=== PATIENT | male | born 1975 | race Caucasian/White ===

== ENCOUNTER 2023-03-17 10:32 | Observation (INO) ==
[2023-03-17] MEDS ORDERED: ZOFRAN INJ 4 MG VIAL IVP PRN (10:39)
[2023-03-17] MEDS: D5 1/2 NS 1,000 ML 1,000 ML IV SCH (14:48)
[2023-03-17] MEDS: DILAUDID INJ IVP PRN ×2 (14:56→20:20)
[2023-03-17] MEDS: ZOFRAN INJ 4 MG VIAL IVP PRN ×2 (14:57→20:16)
[2023-03-17 15:14] VITALS: BMI 32.9
[2023-03-17] MEDS ORDERED: NS 100 ML IV 100 ML ONE (16:52)
[2023-03-17] MEDS ORDERED: OMNIPAQUE 350 mg/mL 100 mL BTL 100 ML ONE (16:52)
[2023-03-17] MEDS ORDERED: READI-CAT 2 ONE (16:53)
[2023-03-17 16:55] LABS: BASOPHILS % (AUTO) 0.2 % (0.2-1.0); EOSINOPHILS % (AUTO) 0.4 % (0.9-2.9); HEMATOCRIT 37.7 % (42.0-54.0); HEMOGLOBIN 12.8 g/dL (13.5-18.0); LYMPHOCYTES # (AUTO) 1.3 X10^3/uL (1.3-2.9); LYMPHOCYTES % (AUTO) 11.1 % (21.0-51.0); MEAN CORPUSCULAR HEMOGLOBIN 30.2 pg (27.0-34.0); MEAN PLATELET VOLUME 7.7 fL (7.4-11.0); MONOCYTES # (AUTO) 0.8 x10^3/uL (0.3-0.8); MONOCYTES % (AUTO) 7.3 % (0.0-13.0); NEUTROPHILS # (AUTO) 9.4 x10^3/uL (2.2-4.8); PLATELET COUNT 165 X10^3/uL (150.0-450.0); RED BLOOD COUNT 4.24 X10^6/uL (4.7-6.0); RED CELL DISTRIBUTION WIDTH 13.1 % (11.6-16.5); WHITE BLOOD COUNT 11.6 X10^3/uL (3.6-10.0)
[2023-03-17 17:10] LABS: ALANINE AMINOTRANSFERASE 72 Units/L (12-78); ALBUMIN 3.1 g/dL (3.4-5.0); ALKALINE PHOSPHATASE 107 Units/L (46-116); ASPARTATE AMINO TRANSFERASE 16 Units/L (15-37); BLOOD UREA NITROGEN 8 mg/dL (7-18); CALCIUM 8.1 mg/dL (8.5-10.1); CARBON DIOXIDE 30.5 mmol/L (21-32); CHLORIDE 103 mmol/L (98-107); COR CA(FOR HYPOALB) 8.8 mg/dL (8.5-10.1); CREATININE 1.04 mg/dL (0.70-1.30); GLUCOSE 93 mg/dL (65-99); POTASSIUM 3.6 mmol/L (3.5-5.1); SODIUM 138 mmol/L (136-145); TOTAL PROTEIN 6.6 g/dL (6.4-8.2); eGFR NON BLACK RACES > 60 (>60)
[2023-03-17] MEDS ORDERED: ATIVAN TAB 1 MG PO PRN (17:11)
[2023-03-17] MEDS: PERCOCET TAB 5/325 MG PO PRN ×2 (18:23→22:45)
[2023-03-18] MEDS: DILAUDID INJ IVP PRN ×5 (00:20→20:20)
[2023-03-18] MEDS: D5 1/2 NS 1,000 ML 1,000 ML IV SCH ×7 (00:28→22:21)
[2023-03-18] MEDS: ZOFRAN INJ 4 MG VIAL IVP PRN (02:16)
[2023-03-18] MEDS: PERCOCET TAB 5/325 MG PO PRN ×2 (03:04→07:58)
[2023-03-18 06:21] LABS: BASOPHILS % (AUTO) 0.3 % (0.2-1.0); EOSINOPHILS # (AUTO) 0.1 x10^3/uL (0.0-0.2); EOSINOPHILS % (AUTO) 0.6 % (0.9-2.9); HEMATOCRIT 38.5 % (42.0-54.0); HEMOGLOBIN 12.9 g/dL (13.5-18.0); LYMPHOCYTES # (AUTO) 1.2 X10^3/uL (1.3-2.9); LYMPHOCYTES % (AUTO) 9.4 % (21.0-51.0); MEAN CORPUSCULAR HGB CONC 33.6 g/dL (33.0-35.0); MEAN CORPUSCULAR VOLUME 89.3 fL (80.0-100.0); MEAN PLATELET VOLUME 8.3 fL (7.4-11.0); MONOCYTES # (AUTO) 1.4 x10^3/uL (0.3-0.8); MONOCYTES % (AUTO) 10.4 % (0.0-13.0); NEUTROPHILS # (AUTO) 10.5 x10^3/uL (2.2-4.8); NEUTROPHILS % (AUTO) 79.3 % (42.0-75.0); PLATELET COUNT 170 X10^3/uL (150.0-450.0); RED BLOOD COUNT 4.31 X10^6/uL (4.7-6.0); RED CELL DISTRIBUTION WIDTH 13.1 % (11.6-16.5); WHITE BLOOD COUNT 13.2 X10^3/uL (3.6-10.0)
[2023-03-18 06:33] LABS: ALANINE AMINOTRANSFERASE 63 Units/L (12-78); ALBUMIN 3.2 g/dL (3.4-5.0); ALKALINE PHOSPHATASE 113 Units/L (46-116); ASPARTATE AMINO TRANSFERASE 14 Units/L (15-37); BLOOD UREA NITROGEN 7 mg/dL (7-18); CALCIUM 8.4 mg/dL (8.5-10.1); CARBON DIOXIDE 30.2 mmol/L (21-32); CHLORIDE 99 mmol/L (98-107); CREATININE 1.03 mg/dL (0.70-1.30); GLUCOSE 100 mg/dL (65-99); POTASSIUM 3.4 mmol/L (3.5-5.1); SODIUM 135 mmol/L (136-145); TOTAL PROTEIN 6.9 g/dL (6.4-8.2); eGFR NON BLACK RACES > 60 (>60)
[2023-03-18] MEDS ORDERED: CONSULT PHARMACY - POTASSIUM & MAGNESIUM XX SCH (08:00)
--- NOTE | 2023-03-18 08:02 | CT ---
EXAM:PELVIS WITH CONTRASTHISTORY:rectal pain; sx:hernia ; pt finished barium @1640. Scanned at 1900COMPARISON:03/03/2023TECHNIQUE:CT images were obtained. Multiplanar reconstructions were created on a separate workstation and used during interpretation. All CT scans at this facility is dose modulation, iterative reconstruction, and/or weight-based dosing as appropriate to reduce radiation to levels as low as reasonably achievable (ALARA). Postprocessing details, radiation dose, and contrast dose (if applicable) are recorded in the patient's medical record.FINDINGS:Mild circumferential rectal wall thickening. Other pelvic contents are unremarkable. No vascular abnormality. No osseous abnormality. No soft tissue abnormality.IMPRESSION:1. Mild circumferential rectal wall thickening may indicate proctitis. No evidence of abscessTHIS IS AN ELECTRONICALLY VERIFIED FINAL REPORT03/18/2023 7:59 AM - Electronically signed by Rosalino Calles MD
[2023-03-18] MEDS ORDERED: K-DUR TAB 20 MEQ PO SCH (09:00)
[2023-03-18] MEDS ORDERED: BETADINE SOLN TOP ONE ×2 (09:28→15:02)
[2023-03-18] MEDS: ATIVAN TAB 1 MG PO SCH ×2 (09:45→20:19)
[2023-03-18] MEDS ORDERED: BETADINE SOLN ONE (10:05)
[2023-03-18] MEDS ORDERED: LEXAPRO ONE (10:28)
[2023-03-18] MEDS: LEXAPRO PO SCH ×2 (10:31→10:32)
[2023-03-18] MEDS ORDERED: TORADOL TAB PO PRN (10:34)
--- NOTE | 2023-03-18 11:37 | DR.PROGNOT ---
HOSPITAL PROGRESS NOTE Progress Note for Day of: Progress Note Date: 03/18/23 Chief Complaint Chief Complaint: Still having significant rectal and anal pain, had difficulty voiding last night which had improved today. Patient was having loose bowel last night with no bleeding. Patient takes Lexapro daily. WBC 13.2.. plate 170.. normal BUN,Creat having loose BM , afebrile Past Medical Family Social History Past Med/Fam/Surg Hx: No changes since H&P Allergies: Allergies No Known Drug Allergies Allergy (Unknown, Verified 03/12/23 11:03) Onset Date: 06/04/2021 Vital Signs Vital Signs: Vital Signs Temperature 98.4 F Temperature 98.5 F Pulse Rate [Brachial] 74 Pulse Rate [Brachial] 75 Respiratory Rate 18 Respiratory Rate 18 Respiratory Rate 18 Respiratory Rate 20 Respiratory Rate 18 Respiratory Rate 18 Respiratory Rate 18 Respiratory Rate 20 Respiratory Rate 20 Blood Pressure [Left Arm] 123/65 Blood Pressure [Left Arm] 114/63 O2 Sat by Pulse Oximetry 97 O2 Sat by Pulse Oximetry 99 Physical Exam Oriented: Normal Eyes: Normal Nose: Normal Respiratory: Normal GI:Auscultation: Normal GI:Palpation: Normal GI: Tenderness: Other (Soft and flat abdomen with mild lower abdominal tenderness, no rebound or rigidity, bowel sounds present.) Speech Pattern: Clear and Appropriate Laboratory and Diagnostics 03/18/23 05:12 03/18/23 05:12 Labs: Laboratory WBC 13.2 X10^3/uL (3.6-10.0) H 03/18/23 05:12 RBC 4.31 X10^6/uL (4.7-6.0) L 03/18/23 05:12 Hgb 12.9 g/dL (13.5-18.0) L 03/18/23 05:12 Hct 38.5 % (42.0-54.0) L 03/18/23 05:12 MCV 89.3 fL (80.0-100.0) 03/18/23 05:12 MCH 30.0 pg (27.0-34.0) 03/18/23 05:12 MCHC 33.6 g/dL (33.0-35.0) 03/18/23 05:12 RDW 13.1 % (11.6-16.5) 03/18/23 05:12 Plt Count 170 X10^3/uL (150.0-450.0) 03/18/23 05:12 MPV 8.3 fL (7.4-11.0) 03/18/23 05:12 Neut % (Auto) 79.3 % (42.0-75.0) H 03/18/23 05:12 Lymph % (Auto) 9.4 % (21.0-51.0) L 03/18/23 05:12 [place] % (Auto) 10.4 % (0.0-13.0) 03/18/23 05:12 Eos % (Auto) 0.6 % (0.9-2.9) L 03/18/23 05:12 Baso % (Auto) 0.3 % (0.2-1.0) 03/18/23 05:12 Neut # (Auto) 10.5 x10^3/uL (2.2-4.8) H 03/18/23 05:12 Lymph # (Auto) 1.2 X10^3/uL (1.3-2.9) L 03/18/23 05:12 [place] # (Auto) 1.4 x10^3/uL (0.3-0.8) H 03/18/23 05:12 Eos # (Auto) 0.1 x10^3/uL (0.0-0.2) 03/18/23 05:12 Baso # (Auto) 0.0 X10^3/uL (0.0-0.1) 03/18/23 05:12 Absolute Nucleated RBC 0.0 /100WBC 03/18/23 05:12 Sodium 135 mmol/L (136-145) L 03/18/23 05:12 Corrected Sodium TNP 03/18/23 05:12 Potassium 3.4 mmol/L (3.5-5.1) L 03/18/23 05:12 Chloride 99 mmol/L (98-107) 03/18/23 05:12 Carbon Dioxide 30.2 mmol/L (21-32) 03/18/23 05:12 BUN 7 mg/dL (7-18) 03/18/23 05:12 Creatinine 1.03 mg/dL (0.70-1.30) 03/18/23 05:12 Est GFR (MDRD) Af Amer > 60 (>60) 03/18/23 05:12 Est GFR (MDRD) Non-Af > 60 (>60) 03/18/23 05:12 Glucose 100 mg/dL (65-99) H 03/18/23 05:12 Calcium 8.4 mg/dL (8.5-10.1) L 03/18/23 05:12 Corrected Calcium 9.0 mg/dL (8.5-10.1) 03/18/23 05:12 Total Bilirubin 0.70 mg/dL (0.2-1.0) 03/18/23 05:12 AST 14 Units/L (15-37) L 03/18/23 05:12 ALT 63 Units/L (12-78) 03/18/23 05:12 Alkaline Phosphatase 113 Units/L (46-116) 03/18/23 05:12 Total Protein 6.9 g/dL (6.4-8.2) 03/18/23 05:12 Albumin 3.2 g/dL (3.4-5.0) L 03/18/23 05:12 Globulin 3.7 g/dL (2.5-4.5) 03/18/23 05:12 Albumin/Globulin Ratio 0.9 Ratio (1.1-2.1) L 03/18/23 05:12 Assessment and Plan 1: Acute anal fissure, status post Botox injection of the anal sphincter. Application of Marcaine To continue the same treatment plan, sitz bath 3 times a day, Percocet 5 every 4 hours as needed, reorder Zoloft, add 1 g of Ativan to take it twice a day. Dilaudid 1 mg every 4 hours as needed.. stay in the hospital for tonigh 2: Left side colitis on recent colonoscopy, Same IV fluid and antibiotics..
[2023-03-18] MEDS: FLAGYL IV PREMIX 500 MG BAG 500 MG/100 ML BAG IV SCH ×3 (14:15→20:18)
[2023-03-18] MEDS: CIPRO IV 400 MG PREMIX* 400 MG/200 ML IV.SOLN. IV SCH ×2 (14:15→20:18)
[2023-03-18] MEDS ORDERED: TORADOL 15 MG VIAL IVP PRN (16:52)
[2023-03-18] MEDS: FIBERCON or FIBER-LAX PO SCH (20:19)
[2023-03-19] MEDS: PERCOCET TAB 5/325 MG PO PRN ×2 (00:14→15:40)
[2023-03-19] MEDS: TORADOL 15 MG VIAL IVP PRN ×2 (02:27→20:30)
[2023-03-19] MEDS: FLAGYL IV PREMIX 500 MG BAG 500 MG/100 ML BAG IV SCH ×4 (02:28→21:16)
[2023-03-19] MEDS: DILAUDID INJ IVP PRN ×3 (04:13→22:22)
[2023-03-19] MEDS: D5 1/2 NS 1,000 ML 1,000 ML IV SCH ×4 (05:20→21:16)
[2023-03-19 06:59] LABS: BASOPHILS % (AUTO) 0.3 % (0.2-1.0); EOSINOPHILS # (AUTO) 0.1 x10^3/uL (0.0-0.2); EOSINOPHILS % (AUTO) 2.1 % (0.9-2.9); HEMATOCRIT 36.2 % (42.0-54.0); HEMOGLOBIN 12.5 g/dL (13.5-18.0); LYMPHOCYTES # (AUTO) 1.3 X10^3/uL (1.3-2.9); LYMPHOCYTES % (AUTO) 18.5 % (21.0-51.0); MEAN CORPUSCULAR HEMOGLOBIN 31.1 pg (27.0-34.0); MEAN CORPUSCULAR HGB CONC 34.6 g/dL (33.0-35.0); MEAN CORPUSCULAR VOLUME 89.9 fL (80.0-100.0); MEAN PLATELET VOLUME 8.5 fL (7.4-11.0); MONOCYTES # (AUTO) 0.7 x10^3/uL (0.3-0.8); MONOCYTES % (AUTO) 10.8 % (0.0-13.0); NEUTROPHILS # (AUTO) 4.6 x10^3/uL (2.2-4.8); NEUTROPHILS % (AUTO) 68.3 % (42.0-75.0); PLATELET COUNT 156 X10^3/uL (150.0-450.0); RED BLOOD COUNT 4.03 X10^6/uL (4.7-6.0); RED CELL DISTRIBUTION WIDTH 13.1 % (11.6-16.5); WHITE BLOOD COUNT 6.8 X10^3/uL (3.6-10.0)
[2023-03-19 07:01] LABS: ALANINE AMINOTRANSFERASE 78 Units/L (12-78); ALBUMIN 2.9 g/dL (3.4-5.0); ALKALINE PHOSPHATASE 112 Units/L (46-116); ASPARTATE AMINO TRANSFERASE 31 Units/L (15-37); BLOOD UREA NITROGEN 6 mg/dL (7-18); CALCIUM 8.3 mg/dL (8.5-10.1); CARBON DIOXIDE 31.7 mmol/L (21-32); CHLORIDE 100 mmol/L (98-107); COR CA(FOR HYPOALB) 9.2 mg/dL (8.5-10.1); CREATININE 0.97 mg/dL (0.70-1.30); GLUCOSE 100 mg/dL (65-99); POTASSIUM 3.6 mmol/L (3.5-5.1); SODIUM 135 mmol/L (136-145); TOTAL PROTEIN 6.3 g/dL (6.4-8.2); eGFR NON BLACK RACES > 60 (>60)
[2023-03-19] MEDS ORDERED: LEXAPRO ONE (08:35)
[2023-03-19] MEDS: LEXAPRO PO SCH (09:30)
[2023-03-19] MEDS: CIPRO IV 400 MG PREMIX* 400 MG/200 ML IV.SOLN. IV SCH ×2 (09:30→21:16)
[2023-03-19] MEDS: ATIVAN TAB 1 MG PO SCH ×2 (09:30→20:30)
--- NOTE | 2023-03-19 17:17 | DR.PROGNOT ---
HOSPITAL PROGRESS NOTE Progress Note for Day of: Progress Note Date: 03/19/23 Chief Complaint Chief Complaint: Feeling better today with less rectal pain, and only minimal rectal bleeding. Afebrile. Still having loose bowel movement and afraid of eating. Past Medical Family Social History Past Med/Fam/Surg Hx: No changes since H&P Allergies: Allergies No Known Drug Allergies Allergy (Unknown, Verified 03/12/23 11:03) Onset Date: 06/04/2021 Vital Signs Vital Signs: Vital Signs Temperature 98.3 F Temperature 98.2 F Pulse Rate [Brachial] 72 Pulse Rate [Brachial] 72 Respiratory Rate 18 Respiratory Rate 18 Respiratory Rate 18 Respiratory Rate 18 Respiratory Rate 18 Blood Pressure [Left Arm] 114/58 Blood Pressure [Left Arm] 114/60 O2 Sat by Pulse Oximetry 97 O2 Sat by Pulse Oximetry 98 Physical Exam Oriented: Normal Eyes: Normal Nose: Normal Respiratory: Normal Cardiovascular: Normal GI:Auscultation: Normal GI:Palpation: Normal GI: Tenderness: Other (Soft and flat abdomen with mild lower abdominal tenderness, no rebound or rigidity, bowel sounds present.) Speech Pattern: Clear and Appropriate Laboratory and Diagnostics 03/19/23 05:32 03/19/23 05:32 Labs: Laboratory WBC 6.8 X10^3/uL (3.6-10.0) 03/19/23 05:32 RBC 4.03 X10^6/uL (4.7-6.0) L 03/19/23 05:32 Hgb 12.5 g/dL (13.5-18.0) L 03/19/23 05:32 Hct 36.2 % (42.0-54.0) L 03/19/23 05:32 MCV 89.9 fL (80.0-100.0) 03/19/23 05:32 MCH 31.1 pg (27.0-34.0) 03/19/23 05:32 MCHC 34.6 g/dL (33.0-35.0) 03/19/23 05:32 RDW 13.1 % (11.6-16.5) 03/19/23 05:32 Plt Count 156 X10^3/uL (150.0-450.0) 03/19/23 05:32 MPV 8.5 fL (7.4-11.0) 03/19/23 05:32 Neut % (Auto) 68.3 % (42.0-75.0) 03/19/23 05:32 Lymph % (Auto) 18.5 % (21.0-51.0) L 03/19/23 05:32 [place] % (Auto) 10.8 % (0.0-13.0) 03/19/23 05:32 Eos % (Auto) 2.1 % (0.9-2.9) 03/19/23 05:32 Baso % (Auto) 0.3 % (0.2-1.0) 03/19/23 05:32 Neut # (Auto) 4.6 x10^3/uL (2.2-4.8) 03/19/23 05:32 Lymph # (Auto) 1.3 X10^3/uL (1.3-2.9) 03/19/23 05:32 [place] # (Auto) 0.7 x10^3/uL (0.3-0.8) 03/19/23 05:32 Eos # (Auto) 0.1 x10^3/uL (0.0-0.2) 03/19/23 05:32 Baso # (Auto) 0.0 X10^3/uL (0.0-0.1) 03/19/23 05:32 Absolute Nucleated RBC 0.0 /100WBC 03/19/23 05:32 Sodium 135 mmol/L (136-145) L 03/19/23 05:32 Corrected Sodium TNP 03/19/23 05:32 Potassium 3.6 mmol/L (3.5-5.1) 03/19/23 05:32 Chloride 100 mmol/L (98-107) 03/19/23 05:32 Carbon Dioxide 31.7 mmol/L (21-32) 03/19/23 05:32 BUN 6 mg/dL (7-18) L 03/19/23 05:32 Creatinine 0.97 mg/dL (0.70-1.30) 03/19/23 05:32 Est GFR (MDRD) Af Amer > 60 (>60) 03/19/23 05:32 Est GFR (MDRD) Non-Af > 60 (>60) 03/19/23 05:32 Glucose 100 mg/dL (65-99) H 03/19/23 05:32 Calcium 8.3 mg/dL (8.5-10.1) L 03/19/23 05:32 Corrected Calcium 9.2 mg/dL (8.5-10.1) 03/19/23 05:32 Total Bilirubin 0.50 mg/dL (0.2-1.0) 03/19/23 05:32 AST 31 Units/L (15-37) 03/19/23 05:32 ALT 78 Units/L (12-78) 03/19/23 05:32 Alkaline Phosphatase 112 Units/L (46-116) 03/19/23 05:32 Total Protein 6.3 g/dL (6.4-8.2) L 03/19/23 05:32 Albumin 2.9 g/dL (3.4-5.0) L 03/19/23 05:32 Globulin 3.4 g/dL (2.5-4.5) 03/19/23 05:32 Albumin/Globulin Ratio 0.9 Ratio (1.1-2.1) L 03/19/23 05:32 Assessment and Plan 1: Acute anal fissure, status post Botox injection of the anal sphincter and Application of Marcaine To continue the same treatment plan, sitz bath 3 times a day, Percocet 5 every 4 hours as needed, reorder Zoloft, add 1 g of Ativan to take it twice a day. Dilaudid 1 mg every 4 hours as needed.. 2: Left side colitis on recent colonoscopy, Same IV fluid and antibiotics..
[2023-03-19] MEDS: FIBERCON or FIBER-LAX PO SCH (20:30)
[2023-03-20] MEDS: FLAGYL IV PREMIX 500 MG BAG 500 MG/100 ML BAG IV SCH ×2 (03:25→09:31)
[2023-03-20] MEDS: D5 1/2 NS 1,000 ML 1,000 ML IV SCH (05:38)
[2023-03-20 06:14] LABS: BASOPHILS % (AUTO) 0.7 % (0.2-1.0); EOSINOPHILS # (AUTO) 0.2 x10^3/uL (0.0-0.2); EOSINOPHILS % (AUTO) 4.9 % (0.9-2.9); HEMATOCRIT 35.5 % (42.0-54.0); HEMOGLOBIN 12.3 g/dL (13.5-18.0); LYMPHOCYTES # (AUTO) 1.1 X10^3/uL (1.3-2.9); LYMPHOCYTES % (AUTO) 28.3 % (21.0-51.0); MEAN CORPUSCULAR HEMOGLOBIN 30.6 pg (27.0-34.0); MEAN CORPUSCULAR HGB CONC 34.7 g/dL (33.0-35.0); MEAN CORPUSCULAR VOLUME 88.2 fL (80.0-100.0); MEAN PLATELET VOLUME 8.1 fL (7.4-11.0); MONOCYTES # (AUTO) 0.5 x10^3/uL (0.3-0.8); MONOCYTES % (AUTO) 13.7 % (0.0-13.0); NEUTROPHILS % (AUTO) 52.4 % (42.0-75.0); PLATELET COUNT 155 X10^3/uL (150.0-450.0); RED BLOOD COUNT 4.02 X10^6/uL (4.7-6.0); RED CELL DISTRIBUTION WIDTH 13.2 % (11.6-16.5); WHITE BLOOD COUNT 3.9 X10^3/uL (3.6-10.0)
[2023-03-20 06:30] LABS: ALANINE AMINOTRANSFERASE 78 Units/L (12-78); ALBUMIN 2.6 g/dL (3.4-5.0); ALKALINE PHOSPHATASE 99 Units/L (46-116); ASPARTATE AMINO TRANSFERASE 29 Units/L (15-37); BLOOD UREA NITROGEN 5 mg/dL (7-18); CALCIUM 8.2 mg/dL (8.5-10.1); CARBON DIOXIDE 31.3 mmol/L (21-32); CHLORIDE 104 mmol/L (98-107); COR CA(FOR HYPOALB) 9.3 mg/dL (8.5-10.1); CREATININE 0.83 mg/dL (0.70-1.30); GLUCOSE 96 mg/dL (65-99); MAGNESIUM 2.1 mg/dL (2.0-2.9); POTASSIUM 3.5 mmol/L (3.5-5.1); SODIUM 139 mmol/L (136-145); TOTAL PROTEIN 5.9 g/dL (6.4-8.2); eGFR NON BLACK RACES > 60 (>60)
[2023-03-20] MEDS ORDERED: CONSULT PHARMACY - POTASSIUM & MAGNESIUM XX SCH (07:00)
[2023-03-20] MEDS ORDERED: LEXAPRO ONE (07:50)
[2023-03-20] MEDS: CIPRO IV 400 MG PREMIX* 400 MG/200 ML IV.SOLN. IV SCH (08:05)
[2023-03-20] MEDS: ATIVAN TAB 1 MG PO SCH (08:05)
[2023-03-20] MEDS: LEXAPRO PO SCH (08:06)
[2023-03-20] MEDS ORDERED: K-DUR TAB 20 MEQ PO SCH (09:00)
[2023-03-20 09:03] VITALS: BP 131/74; PULSE 64; RESP 18; TEMP 97.6; O2SAT 100
== END 2023-03-20 11:40 | disposition home or self-care (01) ==
LOC: MED/SURG
PROVIDERS: ADMIT Surgery; ATTEND Surgery
DX: G89.18 Other acute postprocedural pain; Z98.890 Other specified postprocedural states; K62.89 Other specified diseases of anus and rectum; K60.0 Acute anal fissure; K52.89 Other specified noninfective gastroenteritis and colitis